=== PATIENT | male | born 1940 | race Caucasian/White ===

== ENCOUNTER 2016-08-05 17:09 | Outpatient (CLI) | payer OTHER ==
--- NOTE | 2016-08-05 17:44 | DIAGNOSTIC IMAGING REPORT ---
PROCEDURE: XR CHEST 2 VIEW INDICATION: COUGH/FEVER TECHNIQUE: PA and lateral views. COMPARISON: None. FINDINGS: Lungs are clear. Heart and mediastinum are normal. Thorax is normal. IMPRESSION: 1. Negative chest.
[2016-10-08] MEDS ORDERED: BUPROPION HCL100 M2 PO (15:40)
[2016-10-08] MEDS ORDERED: DOXAZOSIN MESYLA4 MG PO (15:40)
[2016-10-08] MEDS ORDERED: LOVASTATIN10 M1 PO (15:41)
[2016-10-08] MEDS ORDERED: FINASTERIDE5 MG PO (15:41)
[2016-10-08] MEDS ORDERED: MELOXICAM15 MG PO (15:42)
[2016-10-08] MEDS ORDERED: OMEPRAZOLE20 M1 PO (15:43)
== END 2016-08-05 23:00 ==
LOC: XR SRH 17:09
DX: R50.9 Fever, unspecified (principal); R05 Cough

== ENCOUNTER 2016-10-09 08:08 | Day surgery (SDC) | payer OTHER ==
[~2016-10-09] VITALS: Ht 177.8 cm; Wt 87.1 kg
[~2016-10-09 08:08] MED LIST: BUPROPION HCL100 M2 PO; DOXAZOSIN MESYLA4 MG PO; FINASTERIDE5 MG PO; LOVASTATIN10 M1 PO; MELOXICAM15 MG PO; OMEPRAZOLE20 M1 PO
--- NOTE | 2016-10-09 10:18 | Provider's Discharge Care Plan ---
Problem, Goal, Plan Problem List 1. Colon polyp 2. Diverticulosis
--- NOTE | 2016-10-09 10:18 | Provider's Discharge Care Plan ---
Problem, Goal, Plan Problem List 1. Colon polyp 2. Diverticulosis
--- NOTE | 2016-10-09 11:02 | OPERATIVE REPORT ---
DATE OF SURGERY: 10/09/2016 SURGEON: Amanuel Hernandez MD PREOPERATIVE DIAGNOSES: 1. History of colon polyps 2. Hematochezia POSTOPERATIVE DIAGNOSES: 1. Colon polyp 2. Diverticulosis 3. Hemorrhoids PROCEDURE PERFORMED: 1. Colonoscopy with forceps polypectomy ANESTHESIA: Total IV general. INDICATIONS: The patient is a 76-year-old man with a previous history of colon polyps who has occasional rectal bleeding. SURGICAL TECHNIQUE: The patient was taken to the endoscopy suite, where total IV general was administered and the patient was placed in the left lateral decubitus position. The anus was inspected and there was a prominent hemorrhoid at the junction of the internal and external hemorrhoids which appeared somewhat erythematous but was not acutely bleeding. This appeared likely to prolapse and be the cause of potential bleeding. At this point, the patient was not consented for removal of this lesion. The colonoscope was advanced through the colon under direct vision. The cecum was reached. On withdrawal, there was a single polyp at 80 cm, about 3 mm in diameter, which was removed with multiple bites of biopsy forceps. In the sigmoid colon, there was extensive diverticulosis. The rectum was normal on retroflexed view. The patient left in good condition.
[2016-10-09 11:58] VITALS: BP 122/74
== END 2016-10-09 11:55 | disposition home or self-care (01) ==
LOC: OR SRH 08:08 → SCU SRH 08:08 → OR SRH 10:00
PROVIDERS: Surgery
PROC: 0DBL8ZX Excision of Transverse Colon, Via Natural or Artificial Opening Endoscopic, Diagnostic (ICD-10-PCS; principal; 2016-10-09 10:00)
DX: Z12.11 Encounter for screening for malignant neoplasm of colon (principal); D12.3 Benign neoplasm of transverse colon; K64.8 Other hemorrhoids; Z86.010 Personal history of colon polyps
CPT/HCPCS: 29229; 29240; 50004; 60001; 82944; 83526